=== PATIENT | male | born 2000 | race African-American/Black ===

== ENCOUNTER 2020-04-21 15:10 | Emergency (ER) | payer OTHER ==
[~2020-04-21] VITALS: Ht 177.8 cm; Wt 88.8 kg
[2020-04-21 15:10] VITALS: BP 123/69
--- NOTE | 2020-04-21 15:59 | REP ---
INDICATION: cough, chills COMPARISON: None. TECHNIQUE: Portable AP view of the chest FINDINGS: The mediastinum and cardiac silhouette are stable and within normal limits for portable technique. The lung henao are clear without acute consolidation, effusion, or pneumothorax. Skeletal structures are intact. IMPRESSION: No acute cardiopulmonary process appreciated. <Electronically signed by Edmar Cornell > 04/21/20 [id number]
[2020-04-21] MEDS ORDERED: BENZ200C70 PO (16:06)
[2020-04-21] MEDS ORDERED: MUCI600T31 PO (16:06)
== END 2020-04-21 16:24 | disposition home or self-care (01) ==
LOC: M ED 15:10
DX: J06.9 Acute upper respiratory infection, unspecified (principal); F17.210 Nicotine dependence, cigarettes, uncomplicated
CPT/HCPCS: 71045; 99282; U0003

== ENCOUNTER 2022-10-13 12:58 | Emergency (ER) | payer OTHER ==
[~2022-10-13] VITALS: Ht 180.3 cm; Wt 95.8 kg
[~2022-10-13 12:58] MED LIST: BENZ200C70 PO; MUCI600T31 PO
[2022-10-13 12:59] VITALS: BP 124/81
[2022-10-13] MEDS ORDERED: IBUP200C89 PO (13:44)
[2022-10-13] MEDS ORDERED: ACET-683 PO (13:44)
== END 2022-10-13 15:39 | disposition home or self-care (01) ==
LOC: M ED 12:58
DX: U07.1 COVID-19 (principal)